=== PATIENT | male | born 1960 | race Caucasian/White ===

== ENCOUNTER 2018-07-20 17:37 | Emergency (ER) | payer OTHER ==
[~2018-07-20] VITALS: Ht 172.7 cm; Wt 90.7 kg
--- NOTE | 2018-07-20 17:43 | ED.ADGEN ---
Past History Past Medical History: Other Adult General Chief Complaint Chief Complaint " .... The tail gate for loader semiconductor dies... trailer,,, came down and crushed my Rt. Big toe.. " HPI HPI Patient is a 57 year old male who presents with above hx and complaints. Pt. has obvious crush injury and laceration of Rt lst toe. Patient denies other upper foot injury. Toenail is minimally attached. With a deep laceration to the bone across the cuticle and nail bed. Distal circulation is somewhat dusky with a capillary refill of 3 seconds. Patient able to flex and extend toe. Patient is normally healthy. 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 Review of Systems Review of Systems Constitutional: Denies fever or chills [] Eyes: Denies change in visual acuity, redness, or eye pain [] HENT: Denies nasal congestion or sore throat [] Respiratory: Denies cough or shortness of breath [] Cardiovascular: No additional information not addressed in HPI [] GI: Denies abdominal pain, nausea, vomiting, bloody stools or diarrhea [] : Denies dysuria or hematuria [] Musculoskeletal: Denies back pain or joint pain []complaints of right first toe injury as per history of present illness Integument: Denies rash or skin lesions [] Neurologic: Denies headache, focal weakness or sensory changes [] Endocrine: Denies polyuria or polydipsia [] All other systems were reviewed and found to be within normal limits, except as documented in this note. Family History Family History Noncontributory Current Medications Current Medications Current Medications Medications (Trade) Dose Ordered Sig/Charlie Start Time Stop Time Status Last Admin Dose Admin Bupivacaine HCl (Sensorcaine Pf 0.75%) 10 ml 1X ONCE 07/20/18 18:00 07/20/18 18:02 DC 07/20/18 18:16 10 ML Ceftriaxone Sodium (Rocephin Im) 1 gm 1X ONCE 07/20/18 18:00 07/20/18 18:02 DC 07/20/18 18:13 1 GM Diphtheria/ Tetanus/Acell Pertussis (Boostrix) 0.5 ml ONCE ONCE 07/20/18 18:00 07/20/18 18:02 DC 07/20/18 18:15 0.5 ML Hydrocodone Bitartrate/ Ibuprofen (Vicoprofen 7.5-200) 2 tab 1X ONCE 07/20/18 18:00 07/20/18 18:02 DC 07/20/18 18:12 2 TAB Lidocaine HCl 20 ml 1X ONCE 07/20/18 18:00 07/20/18 18:02 DC 07/20/18 18:17 20 ML Neomycin/ Polymyxin/ Bacitracin (Triple Antibiotic Ointment) 1 pkt 1X ONCE 07/20/18 18:00 07/20/18 18:02 DC 07/20/18 18:13 1 PKT Allergies Allergies Allergies Coded Allergies Type Severity Reaction Last Updated Verified No Known Drug Allergies 07/20/18 No Physical Exam Physical Exam Constitutional: Well developed, well nourished, in acute distress, non-toxic appearance. [] HENT: Normocephalic, atraumatic, bilateral external ears normal, oropharynx moist, no oral exudates, nose normal. [] Eyes: PERRLA, EOMI, conjunctiva normal, no discharge. [] Neck: Normal range of motion, no tenderness, supple, no stridor. [] Cardiovascular:Heart rate regular rhythm, no murmur [] Lungs & Thorax: Bilateral breath sounds clear to auscultation [] Abdomen: Bowel sounds normal, soft, no tenderness, no masses, no pulsatile masses. [] Skin: Warm, dry, no erythema, no rash. [] Back: No tenderness, no CVA tenderness. [] Extremities: No tenderness, no cyanosis, no clubbing, ROM intact, no edema. [] Except the findings and his first right toe as per history of present illness Neurologic: Alert and oriented X 3, normal motor function, normal sensory function, no focal deficits noted. [] Psychologic: Affect normal, judgement normal, mood normal. [] Current Patient Data Vital Signs Vital Signs Date Time Temp Pulse Resp B/P (MAP) Pulse Ox O2 Delivery O2 Flow Rate FiO2 07/20/18 17:50 98.3 74 20 96 Room Air EKG EKG [] Radiology/Procedures Radiology/Procedures My interpretation of right foot x-ray shows obvious crush fracture of first toe. [] Course & Med Decision Making Course & Med Decision Making Pertinent Labs and Imaging studies reviewed. (See chart for details) Procedure note- laceration 2 cm 1st toe Rt. was washed with soap and water. Then irrigated with normal saline. Injected lidocaine and Sensorcaine for a digital block. Scrubbed toe with a surgical brush and soap and water. Re- irrigated with normal saline in range of motion. Placed 6 approximation 4-0 prolene sutures. Dressing applied. Patient to take Tylenol and ibuprofen for pain. For marked pain may take Vicoprofen up to 4 times a day. Patient wear only White Socks. Patient to keep clean and dry. Patient apply Polysporin 4 times a day. Sutures out in 10-14 days. Patient to take Keflex 500 mg 3 times a day. Patient warned may lose toe due to severity of the crushed injury. Return if any concerns. Follow-up primary care. [] Final Impression Final Impression 1. Rt. 1st Toe Crush Injury[]with 2 cm laceration to the bone on dorsal side [place] Disclaimer Alyssa Disclaimer This electronic medical record was generated, in whole or in part, using a voice recognition dictation system. Discharge Summary Visit Information Final Diagnosis Problems Medical Problems: (1) Crush fracture Status: Acute (2) Laceration Status: Acute Brief Hospital Course Allergies Allergies Coded Allergies Type Severity Reaction Last Updated Verified No Known Drug Allergies 07/20/18 No Vital Signs Vital Signs Date Time Temp Pulse Resp B/P (MAP) Pulse Ox O2 Delivery O2 Flow Rate FiO2 07/20/18 17:50 98.3 74 20 96 Room Air Brief Hospital Course Mr. Alicea is a 57 old male who presented with crush fx and laceration Rt. lst toe. Discharge Information Condition at Discharge: Improved Disposition/Orders: D/C to Home Dischare Medications Current Medications Lidocaine HCl 20 ml STK-MED ONCE .ROUTE ; Start 07/20/18 at 17:50; Stop at 17:51; Status DC Bupivacaine HCl (Sensorcaine Pf 0.75%) 10 ml STK-MED ONCE .ROUTE ; Start at 17:52; Stop 07/20/18 at 17:53; Status DC Lidocaine HCl 20 ml 1X ONCE IJ Last administered on 07/20/18at 18:17; Admin Dose 20 ML; Start 07/20/18 at 18:00; Stop 07/20/18 at 18:02; Status DC Bupivacaine HCl (Sensorcaine Pf 0.75%) 10 ml 1X ONCE IJ Last administered on 18:16; Admin Dose 10 ML; Start 07/20/18 at 18:00; Stop 07/20/18 at 18: 02; Status DC Diphtheria/ Tetanus/Acell Pertussis (Boostrix) 0.5 ml ONCE ONCE VAX IM Last administered on 07/20/18 18:15; Admin Dose 0.5 ML; Start 07/20/18 at 18:00; Stop 07/20/18 at 18:02; Status DC Ceftriaxone Sodium (Rocephin Im) 1 gm 1X ONCE IM Last administered on 18:13; Admin Dose 1 GM; Start 07/20/18 at 18:00; Stop 07/20/18 at 18:02; Status DC Lidocaine HCl 20 ml 1X ONCE IJ Last administered on 07/20/18 18:17; Admin Dose 20 ML; Start 07/20/18 at 18:00; Stop 07/20/18 at 18:02; Status DC Neomycin/ Polymyxin/ Bacitracin (Triple Antibiotic Ointment) 1 pkt 1X ONCE TP Last administered on 07/20/18 18:13; Admin Dose 1 PKT; Start 07/20/18 at 18:00 ; Stop 07/20/18 at 18:02; Status DC Hydrocodone Bitartrate/ Ibuprofen (Vicoprofen 7.5-200) 2 tab 1X ONCE PO Last administered on 07/20/18 18:12; Admin Dose 2 TAB; Start 07/20/18 at 18:00; Stop 07/20/18 at 18:02; Status DC Active Scripts Active Keflex (Cephalexin) 500 Mg Capsule 500 Mg PO TID 10 Days Hydrocodone-Ibuprofen 7.5-200 (Hydrocodone/Ibuprofen) 1 Each Tablet 1 Tab PO PRN Q6HRS PRN Dragon Disclaimer This chart was dictated in whole or in part using Voice Recognition software in a busy, high-work load, and often noisy Emergency Department environment. It may contain unintended and wholly unrecognized errors or omissions. NOLAN REGAN MD Jul 20, 2018 17:43
[2018-07-20 17:50] VITALS: BP 148/84
[2018-07-20] MEDS ORDERED: LIDOCAINE 2% 20 ML VIAL. ONE (17:50)
[2018-07-20] MEDS ORDERED: BUPIVACAINE PF 0.75% 10 ML VIAL ONE (17:52)
[2018-07-20] MEDS ORDERED: LIDOCAINE 2% 20 ML VIAL. IJ ONE ×2 (18:00)
[2018-07-20] MEDS ORDERED: cefTRIAXone IM 1 GM VIAL IM ONE (18:00)
[2018-07-20] MEDS ORDERED: DIPHTH,PERTUSS(ACELL),TET TOX 0.5 ML DISP.SYRIN. VAX IM ONE (18:00)
[2018-07-20] MEDS ORDERED: NEOMY/BACITR/POLYMYXIN OINT PACKET. TP ONE (18:00)
[2018-07-20] MEDS ORDERED: HYDROcodon/IBUPROFEN 7.5/200MG 1 TAB TABLET PO ONE (18:00)
[2018-07-20] MEDS ORDERED: BUPIVACAINE PF 0.75% 10 ML VIAL IJ ONE (18:00)
--- NOTE | 2018-07-20 18:18 | RAD ---
Three-view right foot dated 07/20/2018. No comparison available. Clinical indication: Pain after injury to first toe. FINDINGS: 3 views of the right foot show a comminuted fracture of the distal phalanx great toe with mild displacement of bony fragments. No definite intra-articular extension. The visualized osseous structures are otherwise intact. IMPRESSION: Comminuted fracture of the distal phalanx great toe. Electronically signed by: Devan Rivera MD (07/20/2018 6:15 PM) [facility] [email or web address]
[2018-07-20] MEDS ORDERED: CEPH-264 PO (18:43)
[2018-07-20] MEDS ORDERED: HYDR-1179 PO (18:43)
== END 2018-07-20 19:00 | disposition home or self-care (01) ==
LOC: ER 17:37
DX: S92.421A Displaced fracture of distal phalanx of right great toe, initial encounter for closed fracture (principal); S91.111A Laceration without foreign body of right great toe without damage to nail, initial encounter; W31.89XA Contact with other specified machinery, initial encounter; Y93.89 Activity, other specified; Y92.89 Other specified places as the place of occurrence of the external cause; Y99.8 Other external cause status
CPT/HCPCS: 12001; 73630; 90471; 90715; 96372; 99283; J0696; J3490; J2001